=== PATIENT | male | born 1985 | race Caucasian/White ===

== ENCOUNTER 2023-05-27 00:06 | Emergency (ER) | payer OTHER, SELFPAY ==
[2023-05-27 00:09] VITALS: BP 123/67; PULSE 90; RESP 19; TEMP 36.3; O2SAT 99
--- NOTE | 2023-05-27 01:49 | ED.GENADULT ---
HPI - General Adult General Chief complaint: Burn/Smoke Inhalation Stated complaint: Spilled hot water on Left foot Time Seen by Provider: 05/27/23 01:43 Source: patient Mode of arrival: ambulatory Limitations: no limitations History of Present Illness HPI narrative: This is a 38-year-old male who presents to the ED with chief complaint of a left foot burn injury that occurred just prior to arrival. He was boiling hot water when it accidentally fell off the stove and landed onto the right foot on. Denies any further sites of pain or injury. Reports blistering to the foot. Related Data Allergies Allergy/AdvReac Type Severity Reaction Status Date / Time No Known Allergies Allergy Verified 05/27/23 00:07 Review of Systems Review of Systems: All systems as dictated in HPI Exam Narrative: GENERAL: Well-appearing, well-nourished, and in no acute distress. HEAD: Normocephalic, atraumatic. EYES: PERRLA and EOMI. ENT: Nares clear, no rhinorrhea or epistaxis. Mucous membranes moist. Oropharynx without tonsillar hypertrophy exudate or other lesions. NECK: Supple. No adenopathy or masses. CHEST: No respiratory distress. Clear to auscultation. No wheezes rales or rhonchi HEART: Regular rate and rhythm. No murmur heard. Normal peripheral pulses. ABDOMEN: Soft, nontender, nondistended, normal active bowel sounds. MSK: Normal range of motion. No edema. SKIN: Well demarcated erythematous region of the skin of the left foot, approximately 10 cm x 8 cm. There is blistering and several areas to the dorsum of the foot. The burn is not circumferential and does not involve the soles of the feet. NEURO: Alert and oriented x3. No focal deficits. PSYCH: Normal mood and affect. Course Vital Signs Vital signs: Vital Signs Temperature 97.3 F L 05/27/23 00:09 Pulse Rate 90 05/27/23 00:09 Respiratory Rate 19 05/27/23 00:09 Blood Pressure 123/67 05/27/23 00:09 Pulse Oximetry 99 05/27/23 00:09 Oxygen Delivery Room Air 05/27/23 00:09 Temperature 97.3 F L 05/27/23 00:09 Pulse Rate 90 05/27/23 00:09 Respiratory Rate 19 05/27/23 00:09 Blood Pressure 123/67 05/27/23 00:09 Pulse Oximetry 99 05/27/23 00:09 Oxygen Delivery Room Air 05/27/23 00:09 Medical Decision Making MDM Narrative Medical decision making narrative: This is a 38-year-old male who presents to the ED with chief complaint of dixon to the left dorsal foot. Vitals are normal. Exam shows superficial partial dixon to the dorsum of the left foot. It is not circumferential or on the soles of the foot. There are a couple blisters that her D removed. Instructed to keep the area clean. Walker given for breakthrough pain. The burn was dressed with bacitracin and gauze dressing here. Wound care instructions given. Pt will be discharged in stable condition. Return precautions given and supportive measures discussed. Pt is understanding and agreeable with plan for discharge and follow-up with PCP. Vital Signs Vital Signs: Vital Signs Temperature 97.3 F L 05/27/23 00:09 Pulse Rate 90 05/27/23 00:09 Respiratory Rate 19 05/27/23 00:09 Blood Pressure 123/67 05/27/23 00:09 Pulse Oximetry 99 05/27/23 00:09 Oxygen Delivery Room Air 05/27/23 00:09 Temperature 97.3 F L 05/27/23 00:09 Pulse Rate 90 05/27/23 00:09 Respiratory Rate 19 05/27/23 00:09 Blood Pressure 123/67 05/27/23 00:09 Pulse Oximetry 99 05/27/23 00:09 Oxygen Delivery Room Air 05/27/23 00:09 Discharge Plan Discharge Clinical Impression: Superficial partial thickness burn of foot Patient Disposition: Home, Self-Care Condition: Stable Instructions: Antibiotic Form Additional Instructions: Keep the area clean and dry. Use Tylenol and ibuprofen as needed for pain. Use Walker for breakthrough pain. Take antibiotics as prescribed. Use Silvadene cream conservatively. If you have any new or worsening symptoms maira
[2023-05-27] MEDS: BACITRACIN OINTMENT 15 GM TUBE 1 APPLIC TOPICAL (02:21)
[2023-05-27 03:37] VITALS: BP 123/62; PULSE 87; RESP 15; O2SAT 100
== END 2023-05-27 03:38 | disposition home or self-care (01) ==
LOC: ANHED 02:01
PROVIDERS: Emergency Provider Physician Assistant; PCP Physician Assistant
DX: T25.229A Burn of second degree of unspecified foot, initial encounter (principal); X11.8XXA Contact with other hot tap-water, initial encounter
CPT/HCPCS: 99283; A9270